=== PATIENT | male | born 1955 | race Caucasian/White ===

== ENCOUNTER 2022-04-28 07:42 | Outpatient (REF) | payer OTHER, SELFPAY ==
[2022-04-28 07:51] LABS: MANUAL DIFF FLAG NO
[2022-04-28 08:08] LABS: Basophils Absolute Auto 0.1 X10*3/uL (0.0-0.2); Basophils Percent Auto 0.5 % (0-2); Eosinophils Absolute Auto 0.3 X10*3/uL (0.0-0.4); Eosinophils Percent Auto 2.3 % (0-4); Hematocrit 43.7 % (42.0-52.0); Hemoglobin 14.4 g/dl (14.0-18.0); Imm Gran Abs Auto 0.06 X10*3/uL (0.00-0.03); Imm Gran Pct Auto 0.5 % (0.0-0.4); Lymphocytes Absolute Auto 3.4 X10*3/uL (1.2-4.9); Lymphocytes Percent Auto 30.3 % (20-40); Mean Corpuscular Hemoglobin 30.8 pg (27.0-33.0); Mean Corpuscular Volume 93.6 fL (80.0-98.0); Mean Platelet Volume 10.2 fL (9.4-12.4); Monocytes Absolute Auto 0.7 X10*3/uL (0.1-1.2); Neutrophils Absolute Auto 6.7 x10*3/uL (2.0-8.3); Neutrophils Percent Auto 60.4 % (45-73); Platelet Count 218 X10*3/uL (160-400); Red Blood Count 4.67 X10*6/uL (4.60-5.80); Red Cell Distribution Width 13.2 % (11.0-16.0); White Blood Count 11.1 X10*3/uL (4.8-10.8)
[2022-04-28 08:40] LABS: Alanine Aminotransferase 13 U/L (0-40); Albumin Level 4.5 g/dL (3.5-5.0); Alkaline Phosphatase 44 U/L (39-117); Anion Gap 11 (12-20); Aspartate Amino Transferase 16 U/L (5-37); Bilirubin Total 0.7 mg/dL (0.0-1.0); Blood Urea Nitrogen 13 mg/dL (9-16); Calcium 9.7 mg/dL (8.4-10.2); Carbon Dioxide 28 mmol/L (22-29); Chloride 109 mmol/L (96-108); Cholesterol 264 mg/dL; Estimated Glomerular Filt Rate > 60; Glucose Random 90 mg/dL (60-115); HDL Cholesterol 35 mg/dL; LDL Cholesterol Calculated 200 mg/dl; Potassium 4.7 mmol/L (3.3-5.1); Sodium 143 mmol/L (135-145); Total Protein 7.2 g/dL (6.5-8.0); Triglycerides 145 mg/dL
[2022-04-28 09:35] LABS: PSA,Total (Free>4and<10) 8.07 ng/mL (0.00-4.00); TSH reflex Free T4 0.92 uIU/mL (0.32-4.0)
[2022-05-02 12:49] LABS: Free Prostate Spec Ag 1.2 ng/mL; Percent Free Prostate Spec Ag 13 % (calc) (>25); Prostate Specific Ag Total 9.2 ng/mL (< OR = 4.0)
== END 2022-04-28 07:43 | disposition home or self-care (01) ==
LOC: HO.LAB 07:42
PROVIDERS: PCP Nurse Practitioner Family; Visit Provider Nurse Practitioner Family
DX: Z13.29 Encounter for screening for other suspected endocrine disorder (principal); Z13.1 Encounter for screening for diabetes mellitus; Z13.0 Encounter for screening for diseases of the blood and blood-forming organs and certain disorders involving the immune mechanism; Z13.220 Encounter for screening for lipoid disorders; Z12.5 Encounter for screening for malignant neoplasm of prostate
CPT/HCPCS: 36415; 80053; 80061; 84153; 84154; 84443; 85025

== ENCOUNTER 2023-01-26 12:10 | Outpatient (AMB) | payer MEDICARE, SELFPAY ==
[2023-01-26 12:12] VITALS: BP 120/90; PULSE 74; O2SAT 97; BMI 21.0
--- NOTE | 2023-01-26 12:12 | A.OFFPC_ITS ---
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 Accompanied by: Self / Same As Patient Allergies No Known Allergies [No Known Allergies*] Allergy (Verified 01/27/23 00:27) Medication List - Last Reconciled 01/27/23 by Waylon Chamberlain MD pravastatin 10 mg PO BEDTIME Tobacco use date assessed: 01/26/23 Fall risk assessment: No Falls in past year Last assessed Fall Risk: 01/26/23 Dental Screening Dental Screen Date: 01/26/23 Did you have a dental visit in the last 12 months?: Yes Did you have a dental problem in the last 6 months where you did not have access to dental care?: No Was dental information given to patient?: Patient has dentist HPI concerned about hands HPI Details Patient comes in today for evaluation of recurrent redness on both of his palms, which he states has been going on for about 3 months now Has noticed that the redness seem to occur and become more prominent when his hands get cold States that his hands do not itch or hurt but he remains concerned about why the rash/redness keeps occurring as he has reportedly read that this could indicate that he has some liver problems going on He denies any pain or swelling of his hands lately States that he feels well otherwise and has not had any problems with his current cholesterol medications Has noticed that his blood pressure also seems to be a lot better ever since he started taking Rx for his high cholesterol He denies any headaches or dizziness Denies any chest pains, no shortness of breath No nausea /vomiting, no abdominal pain No change in bowel habits noted FORMERLY [facility], [facility] Medical History (Updated 01/27/23 @ 02:06 by Waylon Chamberlain MD) Smoker Pure hypercholesterolemia Hyperlipidemia Elevated PSA, less than 10 ng/ml Elevated blood-pressure reading without diagnosis of hypertension Surgical History No pertinent past surgical history Family History Father No problems noted. Mother Bone cancer Sister No problems noted. Social History Household Members: Spouse Housing: House Alcohol intake: never Patient Tobacco Use Status: Current everyday Tobacco user Tobacco use type: Cigarette Cigarettes Per Day: 10 e-Cigarette/Vaping Use: Never Used Second Hand Smoke Exposure: No service: No Current occupational status: unemployed and retired Cognitive needs: No Hearing needs: No Vision needs: Yes Questionnaire PHQ-9 Over the last 2 weeks, how often have you been bothered by any of the following problems? 1. Little interest or pleasure in doing things: not at all 2. Feeling down, depressed, or hopeless: not at all 3. Trouble falling or staying asleep, or sleeping too much: not at all 4. Feeling tired or having little energy: not at all 5. Poor appetite or overeating: not at all 6. Feeling bad about yourself - or that you are a failure or have let yourself or your family down: not at all 7. Trouble concentrating on things, such as reading the newspaper or watching television: not at all 8. Moving or speaking so slowly that other people could have noticed. Or the opposite - being so fidgety or restless that you have been moving around a lot more than usual: not at all 9. Thoughts that you would be better off or of hurting yourself in some way: not at all Total score: 0 Depression Screening Interpretation: Negative Depression Screening Done: Yes 45689 - PHQ-9 Billing: Yes Source: Developed by Drs. Bruno Ugarte, Nicolette Pope, Pietro Hallman and colleagues, with an educational dulce from [employer]. Thrive Questionnaire Date Thrive assessed: 01/26/23 I am a: Patient What is your living situation today?: I have a steady place to live Within the past 12 months, did the food you bought not last and you didn't have the money to get more?: Never true Within the past 12 months, did you worry whether your food would run out before you got money to buy more?: Never true Do you have trouble paying for medicines?: No Do you have trouble getting transportation to medical appointments?: No Do you have trouble paying your heating and electricity bill?: No Do you have trouble taking care of your child, family member or friend?: No Do you have trouble with day-to-day activities such as bathing, preparing meals, shopping, managing finances, etc.?: No Are you currently unemployed and looking for a job?: No Are you interested in more education?: No Please select the resources that you would like help with: None Currently or been in a relationship where the following occur: no concerns reported AUDIT C Alcohol Use Questionnaire (AUDIT-C) 1. How often do you have a drink containing alcohol?: Never Total Score: 0 Score Reviewed/Action Taken: Yes LOYDA-7 AMB Questionnaire LOYDA-7 Date LOYDA - 7 assessed: 01/26/23 Feeling nervous, anxious, or on edge: 0 = Not at all Not being able to stop or control worryin = Not at all Worrying too much about different things: 0 = Not at all Trouble relaxin = Not at all Being so restless that it is hard to sit still: 0 = Not at all Becoming easily annoyed or irritable: 0 = Not at all Feeling afraid as if something awful might happen: 0 = Not at all Total LOYDA-7 score (0-4 normal; 5-9 mild; 10-14 moderate; 15-21 severe): 0 Source: Developed by Drs. Bruno Ugarte, Nicolette Pope, Pietro Hallman and colleagues, with an educational dulce from [employer]. LOYDA-7 Assessment Billing LOYDA-7 Assessment Tool: LOYDA-7 Assessment 66453 Review of Systems Const Denies fatigue, Denies fever(s) and Denies headache(s) ENT Denies dysphagia, Denies dizziness, Denies headache(s), Denies neck pain and Denies sore throat Card Denies chest pain, Denies palpitations and Denies dyspnea Resp Denies cough and Denies dyspnea GI Denies abdominal pain, Denies constipation, Denies dysphagia, Denies diarrhea, Denies nausea and Denies vomiting Denies dysuria and Denies nocturia Musc Denies neck pain Skin/Breast Reports erythema (recurrent, over both palms) Neuro Denies dizziness and Denies headache(s) Endo Denies fatigue and Denies palpitations Physical exam (Primary Care) Vital Signs: Last Vital Signs Pulse 74 01/26/23 12:12 BP 120/90 H 01/26/23 12:12 Pulse Ox 97 01/26/23 12:12 Oxygen Delivery Method Room Air 01/26/23 12:12 BMI result Body Mass Index 21.0 Tobacco/Smoking Status: Tobacco use Status Tobacco use date assessed 01/26/23 01/26/23 12:13 Patient Tobacco Use Status Current everyday Tobacco 01/26/23 12:13 Tobacco use type Cigarette 01/26/23 12:13 e-Cigarette/Vaping Use Never Used 01/26/23 12:13 PHQ-9: PHQ-9 Score PHQ-9: Total score 0 01/26/23 13:01 Depression Screening Interpretation: Negative Thrive Assessment: Date of Thrive Assessment Date Thrive assessed 01/26/23 01/26/23 12:13 Currently or been in a relationship where the following occur: no concerns reported Const General: no acute distress and alert Neck Neck: Yes no lymphadenopathy and Yes supple Resp Auscultation: clear to auscultation bilaterally, no rales and no wheezes Cardio Rate: regular rate Rhythm: regular rhythm Heart sounds: no murmurs GI Palpation (GI): Soft to palpation and nontender Auscultation: normal bowel sounds Extrem Other: (+) erythema over the palms of both hands; no tenderness noted on exam General: Yes no clubbing, cyanosis or edema Assessment and Plan Assessment & Plan (1) Palmar erythema: Code(s): L53.8 - Other specified erythematous conditions Plan: Will send patient for some labs OLGA for further evaluation (2) Pure hypercholesterolemia: Code(s): E78.00 - Pure hypercholesterolemia, unspecified Plan: Reinforced low cholesterol diet Continue Pravastatin 10 mg QD He is advised to recheck his labs and fasting lipids 1 to 2 weeks before he comes back in April 2023 for his next appointment (3) Smoker: Code(s): F17.200 - Nicotine dependence, unspecified, uncomplicated Plan: Counseled on smoking cessation Plan To return as scheduled in April 2023 for his next annual physical examination Orders: Orders C Reactive Protein 01/26/23 L53.8 - Other specified erythematous conditions Lipid Panel 04/22/23 E78.00 - Pure hypercholesterolemia, unspecified TSH reflex Free T4 04/22/23 E78.00 - Pure hypercholesterolemia, unspecified Vitamin D 25-OH Total 04/22/23 E55.9 - Vitamin D deficiency, unspecified Complete Blood Count Auto Diff 01/26/23 L53.8 - Other specified erythematous conditions Comprehensive Met. Panel 01/26/23 L53.8 - Other specified erythematous conditions Erythrocyte Sedimentation Rate 01/26/23 L53.8 - Other specified erythematous conditions Ferritin 01/26/23 L53.8 - Other specified erythematous conditions Comprehensive [place]. Panel Fast 04/22/23 E78.00 - Pure hypercholesterolemia, unspecified UA CC w/rflx Micro + Cult 04/22/23 R30.0 - Dysuria Coding Level of Care Code Est Pt Level 3 (49400) Diagnoses Palmar erythema L53.8 Pure hypercholesterolemia E78.00 Smoker F17.200 Additional Codes LOYDA-7 Assessment Billing - LOYDA-7 Assessment Tool: LOYDA-7 Assessment 38169 ([id number])
== END 2023-01-26 13:13 | disposition home or self-care (01) ==
PROVIDERS: PCP Nurse Practitioner Family; Visit Provider Internal Medicine
DX: L53.8 Other specified erythematous conditions (principal); E78.00 Pure hypercholesterolemia, unspecified; F17.210 Nicotine dependence, cigarettes, uncomplicated
CPT/HCPCS: 99213

== ENCOUNTER 2023-01-27 07:56 | Outpatient (REF) | payer MEDICARE, SELFPAY ==
[2023-01-27 08:09] LABS: MANUAL DIFF FLAG NO
[2023-01-27 08:51] LABS: Basophils Percent Auto 0.4 % (0-2); Eosinophils Absolute Auto 0.2 X10*3/uL (0.0-0.4); Hematocrit 44.4 % (42.0-52.0); Hemoglobin 14.7 g/dl (14.0-18.0); Imm Gran Abs Auto 0.04 X10*3/uL (0.00-0.03); Imm Gran Pct Auto 0.4 % (0.0-0.4); Lymphocytes Absolute Auto 2.4 X10*3/uL (1.2-4.9); Lymphocytes Percent Auto 25.4 % (20-40); Mean Corpuscular HGB Conc 33.1 g/dl (31.0-36.0); Mean Corpuscular Hemoglobin 31.1 pg (27.0-33.0); Mean Corpuscular Volume 93.9 fL (80.0-98.0); Mean Platelet Volume 10.6 fL (9.4-12.4); Monocytes Absolute Auto 0.6 X10*3/uL (0.1-1.2); Monocytes Percent Auto 6.5 % (2-11); Neutrophils Absolute Auto 6.1 x10*3/uL (2.0-8.3); Neutrophils Percent Auto 65.3 % (45-73); Platelet Count 214 X10*3/uL (160-400); Red Blood Count 4.73 X10*6/uL (4.60-5.80); Red Cell Distribution Width 13.3 % (11.0-16.0); White Blood Count 9.4 X10*3/uL (4.8-10.8)
[2023-01-27 09:19] LABS: Alanine Aminotransferase 15 U/L (0-40); Albumin Level 4.7 g/dL (3.5-5.0); Alkaline Phosphatase 51 U/L (39-117); Anion Gap 13 (12-20); Aspartate Amino Transferase 18 U/L (5-37); Bilirubin Total 0.5 mg/dL (0.0-1.0); Blood Urea Nitrogen 20 mg/dL (9-16); C Reactive Protein 0.13 mg/dL (< or = 0.50); Calcium 9.9 mg/dL (8.4-10.2); Carbon Dioxide 25 mmol/L (22-29); Chloride 106 mmol/L (96-108); Estimated Glomerular Filt Rate > 60; Glucose Random 79 mg/dL (60-115); Potassium 4.2 mmol/L (3.3-5.1); Sodium 140 mmol/L (135-145)
[2023-01-27 09:28] LABS: Ferritin 271 ng/mL (20-250)
[2023-01-27 09:30] LABS: Erythrocyte Sedimentation Rate 17 MM/HR (0-15)
== END 2023-01-27 07:57 | disposition home or self-care (01) ==
LOC: HO.LAB 07:56
PROVIDERS: PCP Internal Medicine; Visit Provider Internal Medicine
DX: L53.8 Other specified erythematous conditions (principal)
CPT/HCPCS: 36415; 80053; 82728; 85025; 85652; 86140

== ENCOUNTER 2023-07-26 10:31 | Outpatient (AMB) | payer MEDICARE, SELFPAY ==
--- NOTE | 2023-07-26 10:33 | MHC.PC.OV ---
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 Allergies No Known Allergies [No Known Allergies*] Allergy (Verified 07/26/23 11:03) Medication List - Last Reconciled 07/26/23 by Waylon Chamberlain MD melatonin 10 mg PO BEDTIME PRN multivit with tml-ON-jihhytki 400-370 mcg (One-A-Day Men's 50 Plus) 1 tab PO DAILY pravastatin 10 mg PO BEDTIME Tobacco use date assessed: 07/26/23 Fall risk assessment: No Falls in past year Last assessed Fall Risk: 07/26/23 Dental Screening Dental Screen Date: 07/26/23 Did you have a dental visit in the last 12 months?: No Did you have a dental problem in the last 6 months where you did not have access to dental care?: No HPI annual exam HPI Details Patient comes in today for his annual physical examination States that he feels okay He denies any headaches or dizziness Denies any chest pains, no SOB No nausea/vomiting, no abdominal pain No change in bowel habits noted He denies any acute urinary symptoms He continues to notice recurrent redness on both of his palms, which seem to become more prominent when his hands get cold States that his hands do not itch or hurt and he denies any pain or swelling of his hands and fingers He has never had a colonoscopy done before and continues to decline referral to get one done He previously agreed to doing Cologuard testing but did not go through with this as he reportedly lost his insurance back then and is not interested in doing it at this time He has not follow up labs done recently [facility] Medical History (Updated 07/26/23 @ 11:22 by Waylon Chamberlain MD) Smoker Pure hypercholesterolemia Elevated PSA, less than 10 ng/ml Elevated blood-pressure reading without diagnosis of hypertension Surgical History No pertinent past surgical history Family History Father No problems noted. Mother Bone cancer Sister No problems noted. Social History Household Members: Spouse Housing: House Alcohol intake: never Patient Tobacco Use Status: Current everyday Tobacco user Tobacco use type: Cigarette Cigarettes Per Day: 10 e-Cigarette/Vaping Use: Never Used Second Hand Smoke Exposure: No service: No Current occupational status: unemployed and retired Cognitive needs: No Hearing needs: No Vision needs: Yes Questionnaire PHQ-9 Over the last 2 weeks, how often have you been bothered by any of the following problems? 1. Little interest or pleasure in doing things: not at all 2. Feeling down, depressed, or hopeless: not at all 3. Trouble falling or staying asleep, or sleeping too much: not at all 4. Feeling tired or having little energy: not at all 5. Poor appetite or overeating: not at all 6. Feeling bad about yourself - or that you are a failure or have let yourself or your family down: not at all 7. Trouble concentrating on things, such as reading the newspaper or watching television: not at all 8. Moving or speaking so slowly that other people could have noticed. Or the opposite - being so fidgety or restless that you have been moving around a lot more than usual: not at all 9. Thoughts that you would be better off or of hurting yourself in some way: not at all Total score: 0 Depression Screening Interpretation: Negative Depression Screening Done: Yes 03288 - PHQ-9 Billing: Yes Source: Developed by Drs. Bruno Ugarte, Nicolette Pope, Pietro Hallman and colleagues, with an educational dulce from [employer]. Thrive Questionnaire Date Thrive assessed: 07/26/23 I am a: Patient What is your living situation today?: I have a steady place to live Within the past 12 months, did the food you bought not last and you didn't have the money to get more?: Never true Within the past 12 months, did you worry whether your food would run out before you got money to buy more?: Never true Do you have trouble paying for medicines?: No Do you have trouble getting transportation to medical appointments?: No Do you have trouble paying your heating and electricity bill?: No Do you have trouble taking care of your child, family member or friend?: No Do you have trouble with day-to-day activities such as bathing, preparing meals, shopping, managing finances, etc.?: No Are you currently unemployed and looking for a job?: No Are you interested in more education?: No Please select the resources that you would like help with: None Currently or been in a relationship where the following occur: no concerns reported THRIVE Score: 0 AUDIT C Alcohol Use Questionnaire (AUDIT-C) 1. How often do you have a drink containing alcohol?: Never 3. How often do you have six or more drinks on one occasion?: Never Total Score: 0 Score Reviewed/Action Taken: Yes LOYDA-7 AMB Questionnaire LOYDA-7 Date LOYDA - 7 assessed: 07/26/23 Feeling nervous, anxious, or on edge: 0 = Not at all Not being able to stop or control worryin = Not at all Worrying too much about different things: 0 = Not at all Trouble relaxin = Not at all Being so restless that it is hard to sit still: 0 = Not at all Becoming easily annoyed or irritable: 0 = Not at all Feeling afraid as if something awful might happen: 0 = Not at all Total LOYDA-7 score (0-4 normal; 5-9 mild; 10-14 moderate; 15-21 severe): 0 Source: Developed by Drs. Bruno Ugarte, Nicolette Pope, Pietro Hallman and colleagues, with an educational dulce from [employer]. LOYDA-7 Assessment Billing LOYDA-7 Assessment Tool: LOYDA-7 Assessment 15720 Review of Systems Const Denies chills, Denies fatigue, Denies fever(s), Denies headache(s), Denies malaise and Denies weakness Eyes Denies blurry vision, Denies change in vision, Denies irritation and Denies itchy eyes ENT Denies dysphagia, Denies dizziness, Denies otalgia, Denies headache(s), Denies nasal congestion, Denies neck pain, Denies odynophagia and Denies sore throat Card Denies chest pain, Denies rapid heart rate, Denies irregular heart rhythm, Denies palpitations and Denies dyspnea Resp Denies chest congestion, Denies cough, Denies dyspnea and Denies wheezing GI Denies abdominal pain, Denies bloating, Denies constipation, Denies dysphagia, Denies heartburn, Denies diarrhea, Denies nausea, Denies odynophagia and Denies vomiting Denies hematuria, Denies difficulty urinating, Denies dysuria, Denies urinary frequency and Denies urinary urgency Musc Denies back pain, Denies arthralgias, Denies joint swelling, Denies muscle weakness and Denies neck pain Skin/Breast Details: (+) erythema of both palms, primarily over the thenar and hypothenar eminence Denies change in pigmentation, Denies lesions, Denies rash and Denies unusual bruising Neuro Denies dizziness, Denies headache(s), Denies paresthesias and Denies weakness Endo Denies fatigue and Denies palpitations Aller/Immun Denies itchy eyes and Denies wheezing Physical exam (Primary Care) Vital Signs: Last Vital Signs Pulse 77 07/26/23 10:34 BP 138/64 07/26/23 10:34 Pulse Ox 97 07/26/23 10:34 Oxygen Delivery Method Room Air 07/26/23 10:34 BMI result Body Mass Index 20.8 Tobacco/Smoking Status: Tobacco use Status Tobacco use date assessed 07/26/23 07/26/23 10:35 Patient Tobacco Use Status Current everyday Tobacco 07/26/23 10:35 Tobacco use type Cigarette 07/26/23 10:35 e-Cigarette/Vaping Use Never Used 07/26/23 10:35 PHQ-9: PHQ-9 Score PHQ-9: Total score 0 07/26/23 10:35 Depression Screening Interpretation: Negative Thrive Assessment: Date of Thrive Assessment Date Thrive assessed 07/26/23 07/26/23 10:42 Currently or been in a relationship where the following occur: no concerns reported Const General: no acute distress, alert and awake Orientation/consciousness: patient oriented x3 HENMT Head: Yes normocephalic and Yes atraumatic Ears: external ears normal, TM's normal bilaterally and EAC's normal General nose exam: No nasal discharge present Face and sinus: Yes normal facial exam and Yes sinuses nontender Teeth and gingiva: dentition normal Throat: Yes posterior oropharynx normal and Yes tonsils normal (no TP congestion) Eyes Eyelids: Yes eyelids normal Conjunctivae: conjunctivae normal Pupils: Equal, round and reactive pupils present EOM: EOMs intact bilaterally Neck Neck: Yes no lymphadenopathy and Yes supple Thyroid: Thyroid normal Resp Auscultation: clear to auscultation bilaterally, no rales and no wheezes Cardio Rate: regular rate Rhythm: regular rhythm Heart sounds: no murmurs GI Palpation (GI): Soft to palpation, nontender and No hepatosplenomegaly present Auscultation: normal bowel sounds General: Yes no CVA tenderness Back/Spine/Pelvis Back: no CVA tenderness Thoracic/Lumbar Spine: thoracic and lumbar spine normal to inspection Skin General skin exam: erythema (of both palms, primarily over the thenar and hypothenar eminence) Lesions: no lesions Rashes: no rashes Neuro General: patient oriented x3, moves all extremities, no focal motor deficits and CN's II-XI intact bilaterally Cranial nerves: Yes Equal, round and reactive pupils present Cognition (Neuro): normal cognition Gait exam (Neuro): Normal gait present Extrem General: Yes no clubbing, cyanosis or edema Assessment and Plan Assessment & Plan (1) Annual physical exam: Code(s): Z00.00 - Encounter for general adult medical examination without abnormal findings Plan: Check labs Patient has never had a screening colonoscopy done in the past and continues to decline going for one at this time (2) Pure hypercholesterolemia: Code(s): E78.00 - Pure hypercholesterolemia, unspecified Plan: Reinforced low cholesterol diet Continue Pravastatin 10 mg QD Will have him recheck his fasting lipids OLGA for follow up - is advised again that his cholesterol numbers were very high (LDL at 200 mg/dl) when they were last checked over a year ago in April 2022 (3) Palmar erythema: Code(s): L53.8 - Other specified erythematous conditions Plan: Previous basic work ups done were all unremarkable Will send him for some additional labs for further evaluation of his recurrent palmar erythema - discussed that vasculitis and other possibilities should be considered at this time although other than his erythema, patient is mostly asymptomatic (4) Elevated PSA, less than 10 ng/ml: Code(s): R97.20 - Elevated prostate specific antigen [PSA] Plan: Will recheck his PSA for follow up Is advised that if his PSA level remains elevated, he should consider a referral to urology for further evaluation and management (5) Smoker: Code(s): F17.200 - Nicotine dependence, unspecified, uncomplicated Plan: Counseled again on smoking cessation Plan Follow up in 6 months Orders: Orders Complete Blood Count Auto Diff Today D64.9 - Anemia, unspecified, L53.8 - Other specified erythematous conditions Comprehensive [place]. Panel Fast Today E78.00 - Pure hypercholesterolemia, unspecified, L53.8 - Other specified erythematous conditions UA CC w/rflx Micro + Cult Today L53.8 - Other specified erythematous conditions, R30.0 - Dysuria Vitamin B12 and Folate Today E53.8 - Deficiency of other specified B group vitamins, L53.8 - Other specified erythematous conditions Vitamin D 25-OH Total Today E55.9 - Vitamin D deficiency, unspecified, L53.8 - Other specified erythematous conditions PSA,Total (Free>4and<10) Today N40.0 - Benign prostatic hyperplasia without lower urinary tract symptoms, R97.20 - Elevated prostate specific antigen [PSA] Rheumatoid Factor Today L53.8 - Other specified erythematous conditions Lyme IgG/IgM w/reflex to WB Today L53.8 - Other specified erythematous conditions Lipid Panel Today E78.00 - Pure hypercholesterolemia, unspecified, L53.8 - Other specified erythematous conditions TSH reflex Free T4 Today E78.00 - Pure hypercholesterolemia, unspecified, L53.8 - Other specified erythematous conditions Erythrocyte Sedimentation Rate Today L53.8 - Other specified erythematous conditions, M79.7 - Fibromyalgia C Reactive Protein Today L53.8 - Other specified erythematous conditions Magnesium Today E83.42 - Hypomagnesemia, L53.8 - Other specified erythematous conditions MILEY Reflex Titer and Pattern Today L53.8 - Other specified erythematous conditions Review Patient declined Colonoscopy: 07/26/23 Patient declined Colon Cancer Screen Lab: 07/26/23 Coding Level of Care Code Est Pt Prev Care >65y(12649) Diagnoses Annual physical exam Z00.00 Pure hypercholesterolemia E78.00 Palmar erythema L53.8 Elevated PSA, less than 10 ng/ml R97.20 Smoker F17.200 Additional Codes LOYDA-7 Assessment Billing - LOYDA-7 Assessment Tool: LOYDA-7 Assessment 26464 ([id number])
[2023-07-26 10:34] VITALS: BP 138/64; PULSE 77; O2SAT 97; BMI 20.8
== END 2023-07-26 12:18 | disposition home or self-care (01) ==
PROVIDERS: PCP Internal Medicine; Visit Provider Internal Medicine
DX: Z00.00 Encounter for general adult medical examination without abnormal findings (principal); E78.00 Pure hypercholesterolemia, unspecified; L53.8 Other specified erythematous conditions; R97.20 Elevated prostate specific antigen [PSA]; F17.200 Nicotine dependence, unspecified, uncomplicated
CPT/HCPCS: 99397

== ENCOUNTER 2023-07-27 06:47 | Outpatient (REF) | payer MEDICARE, SELFPAY ==
[2023-07-27 07:01] LABS: MANUAL DIFF FLAG NO
[2023-07-27 07:47] LABS: Basophils Absolute Auto 0.1 X10*3/uL (0.0-0.2); Basophils Percent Auto 0.6 % (0-2); Eosinophils Absolute Auto 0.3 X10*3/uL (0.0-0.4); Eosinophils Percent Auto 2.1 % (0-4); Hematocrit 42.6 % (42.0-52.0); Hemoglobin 14.3 g/dl (14.0-18.0); Imm Gran Abs Auto 0.05 X10*3/uL (0.00-0.03); Imm Gran Pct Auto 0.4 % (0.0-0.4); Lymphocytes Absolute Auto 3.1 X10*3/uL (1.2-4.9); Lymphocytes Percent Auto 25.5 % (20-40); Mean Corpuscular HGB Conc 33.6 g/dl (31.0-36.0); Mean Corpuscular Hemoglobin 31.8 pg (27.0-33.0); Mean Corpuscular Volume 94.9 fL (80.0-98.0); Mean Platelet Volume 10.9 fL (9.4-12.4); Monocytes Absolute Auto 0.8 X10*3/uL (0.1-1.2); Monocytes Percent Auto 6.5 % (2-11); Neutrophils Absolute Auto 7.8 x10*3/uL (2.0-8.3); Neutrophils Percent Auto 64.9 % (45-73); Platelet Count 207 X10*3/uL (160-400); Red Blood Count 4.49 X10*6/uL (4.60-5.80); Red Cell Distribution Width 13.6 % (11.0-16.0); White Blood Count 12.1 X10*3/uL (4.8-10.8)
[2023-07-27 08:05] LABS: Rheumatoid Factor < 13.0 IU/mL (<15.0)
[2023-07-27 08:12] LABS: Alanine Aminotransferase 18 U/L (0-40); Albumin Level 4.4 g/dL (3.5-5.0); Alkaline Phosphatase 47 U/L (39-117); Anion Gap 14 (12-20); Aspartate Amino Transferase 18 U/L (5-37); Bilirubin Total 0.5 mg/dL (0.0-1.0); Blood Urea Nitrogen 19 mg/dL (9-16); Calcium 9.4 mg/dL (8.4-10.2); Carbon Dioxide 25 mmol/L (22-29); Chloride 108 mmol/L (96-108); Cholesterol 171 mg/dL (<200); Estimated Glomerular Filt Rate > 60; Glucose Fasting 90 mg/dL (60-99); HDL Cholesterol 38 mg/dL (>40); LDL Cholesterol Calculated 113 mg/dL (<100); Potassium 4.5 mmol/L (3.3-5.1); Sodium 142 mmol/L (135-145); Total Protein 7.4 g/dL (6.5-8.0); Triglycerides 104 mg/dL (<150)
[2023-07-27 08:23] LABS: PSA,Total (Free>4and<10) 11.39 ng/mL (0.00-4.00)
[2023-07-27 08:26] LABS: TSH reflex Free T4 0.72 uIU/mL (0.32-4.0); Vitamin D 25-OH Total 33.3 ng/mL (>30)
[2023-07-27 08:28] LABS: Appearance Urine Clear; Color Urine Yellow; Glucose Urine UA Negative (Negative); Leukocyte Esterase Urine Negative (Negative); Nitrite Urine Negative (Negative); PH 6.5 (5.0-9.0); Specific Gravity - Urine 1.025 (1.005-1.025); Urine Blood Negative (Negative); Urine Ketones Negative (Negative); Urine Protein Negative (Neg-Trace)
[2023-07-27 08:35] LABS: Folate 10.8 ng/mL (> or = 4.0); Vitamin B12 313 pg/mL (200-900)
[2023-07-27 08:56] LABS: Erythrocyte Sedimentation Rate 20 MM/HR (0-15)
[2023-07-28 09:08] LABS: Lyme Abs Screen <0.90 index
[2023-07-31 14:44] LABS: Anti Nuclear Antibody Screen NEGATIVE (NEGATIVE)
== END 2023-07-27 06:48 | disposition home or self-care (01) ==
LOC: HO.LAB 06:47
PROVIDERS: PCP Internal Medicine; Visit Provider Internal Medicine
DX: E53.8 Deficiency of other specified B group vitamins (principal); M79.7 Fibromyalgia; E78.00 Pure hypercholesterolemia, unspecified; L53.8 Other specified erythematous conditions; R30.0 Dysuria; E55.9 Vitamin D deficiency, unspecified; N40.0 Benign prostatic hyperplasia without lower urinary tract symptoms; R97.20 Elevated prostate specific antigen [PSA]; E83.42 Hypomagnesemia; D64.9 Anemia, unspecified; Z12.5 Encounter for screening for malignant neoplasm of prostate
CPT/HCPCS: 36415; 80053; 80061; 81003; 82306; 82607; 82746; 83735; 84153; 84443; 85025; 85652; 86038; 86140; 86431; 86617; 86618

== ENCOUNTER 2024-01-25 10:38 | Outpatient (REF) | payer MEDICARE, SELFPAY ==
--- NOTE | 2024-01-25 12:46 | ECG_ITS ---
Test Reason : r09.89 Blood Pressure : / mmHG Vent. Rate : 069 BPM Atrial Rate : 069 BPM P-R Int : 124 ms QRS Dur : 076 ms QT Int : 370 ms P-R-T Axes : 053 -42 062 degrees QTc Int : 396 ms Normal sinus rhythm Left axis deviation Abnormal ECG No previous ECGs available Referred By: Byron Malone Electronically Signed By:SÁNCHEZ ALEJO MD
[2024-01-25 12:53] LABS: MANUAL DIFF FLAG NO
[2024-01-25 13:04] LABS: Basophils Absolute Auto 0.1 X10*3/uL (0.0-0.2); Basophils Percent Auto 0.5 % (0-2); Eosinophils Absolute Auto 0.2 X10*3/uL (0.0-0.4); Eosinophils Percent Auto 1.4 % (0-4); Hematocrit 41.1 % (42.0-52.0); Hemoglobin 13.9 g/dl (14.0-18.0); Imm Gran Abs Auto 0.04 X10*3/uL (0.00-0.03); Imm Gran Pct Auto 0.4 % (0.0-0.4); Lymphocytes Absolute Auto 2.5 X10*3/uL (1.2-4.9); Lymphocytes Percent Auto 22.6 % (20-40); Mean Corpuscular HGB Conc 33.8 g/dl (31.0-36.0); Mean Corpuscular Volume 94.7 fL (80.0-98.0); Mean Platelet Volume 10.6 fL (9.4-12.4); Monocytes Absolute Auto 0.6 X10*3/uL (0.1-1.2); Monocytes Percent Auto 5.3 % (2-11); Neutrophils Absolute Auto 7.8 x10*3/uL (2.0-8.3); Neutrophils Percent Auto 69.8 % (45-73); Platelet Count 194 X10*3/uL (160-400); Red Blood Count 4.34 X10*6/uL (4.60-5.80); Red Cell Distribution Width 13.3 % (11.0-16.0); White Blood Count 11.2 X10*3/uL (4.8-10.8)
[2024-01-25 13:46] LABS: Alanine Aminotransferase 29 U/L (0-40); Albumin Level 4.6 g/dL (3.5-5.0); Alkaline Phosphatase 49 U/L (39-117); Anion Gap 12 (12-20); Aspartate Amino Transferase 25 U/L (5-37); Bilirubin Total 0.3 mg/dL (0.0-1.0); Blood Urea Nitrogen 14 mg/dL (9-16); Calcium 10.2 mg/dL (8.4-10.2); Carbon Dioxide 25 mmol/L (22-29); Chloride 109 mmol/L (96-108); Estimated Glomerular Filt Rate > 60; Glucose Random 102 mg/dL (60-115); Magnesium 2.2 mg/dL (1.6-2.6); Potassium 4.4 mmol/L (3.3-5.1); Sodium 142 mmol/L (135-145); Total Protein 7.8 g/dL (6.5-8.0)
[2024-01-25 13:47] LABS: Erythrocyte Sedimentation Rate 23 MM/HR (0-15)
[2024-01-25 13:55] LABS: TSH reflex Free T4 0.74 uIU/mL (0.32-4.0)
== END 2024-01-25 10:39 | disposition home or self-care (01) ==
LOC: HO.LAB 10:38
PROVIDERS: PCP Internal Medicine; Visit Provider Internal Medicine
DX: R97.20 Elevated prostate specific antigen [PSA] (principal); R09.89 Other specified symptoms and signs involving the circulatory and respiratory systems; H93.8X2 Other specified disorders of left ear; E78.00 Pure hypercholesterolemia, unspecified; R03.0 Elevated blood-pressure reading, without diagnosis of hypertension; D64.9 Anemia, unspecified; F17.200 Nicotine dependence, unspecified, uncomplicated; Z79.899 Other long term (current) drug therapy
CPT/HCPCS: 36415; 80053; 83735; 84443; 85025; 85652; 93005; 96127; 99212

== ENCOUNTER 2024-01-25 10:38 | Outpatient (AMB) | payer MEDICARE, SELFPAY ==
[2024-01-25 10:59] VITALS: BP 140/82; PULSE 78; O2SAT 97; BMI 21.8
--- NOTE | 2024-01-25 10:59 | A.OFFPC_ITS ---
Vital Signs 01/25/24 10:59 01/25/24 12:14 Height 5 ft 5 in Weight 131 lb BMI 21.8 BP 140/82 H 142/80 H Blood Pressure Location Lt brachial Lt brachial Position Sitting Sitting Pulse 78 Pulse Source Pulse Oximeter Pulse Oximetry (%) 97 Oxygen Delivery Method Room Air Intake Visit Reasons: HLD Radiological Equipment Specialist Required: No Accompanied by: Self / Same As Patient Allergies No Known Allergies [No Known Allergies*] Allergy (Verified 01/25/24 11:10) Medication List - Last Reconciled 01/25/24 by CARIN Jasso melatonin 10 mg PO BEDTIME PRN multivit with [id number] 400-370 mcg (One-A-Day Men's 50 Plus) 1 tab PO D AILY pravastatin 10 mg PO BEDTIME Tobacco use date assessed: 01/25/24 Fall risk assessment: No Falls in past year Last assessed Fall Risk: 01/25/24 Dental Screening Dental Screen Date: 01/25/24 Did you have a dental visit in the last 12 months?: Yes Did you have a dental problem in the last 6 months where you did not have access to dental care?: No Was dental information given to patient?: Patient has dentist HPI HLD HPI Details The patient is here for follow up visit He reports that he does not have any urinary symptoms reports that he does not want to see a urologist at this time reports that if his psa levels still increasing on his next physical He will think about seeing an urologist then reports that he never had his heart checked before reports that some not some times he feel like a shortwave, real quick, but does last long He denies chest pain, denies sob, denies palpitation, and dizziness He also denies any changes in the his vision reports that his left ear has been bothering him for couple weeks reports that he is hearing his heartbeat intermittently in his ear reports that the sounds are worse at night when it comes on reports that he was hearing the sounds in the office lobby reports that the sounds are completely gone now he denies pain in both ears denies any ringing in the ears denies any drainage reports trying otc ear drops, but he is not sure which one however, the patient reports that it did not work [facility] Medical History (Updated 01/25/24 @ 13:16 by CARIN Jasso) Smoker Pure hypercholesterolemia Elevated PSA, less than 10 ng/ml Elevated blood-pressure reading without diagnosis of hypertension Surgical History No pertinent past surgical history Family History Father No problems noted. Mother Bone cancer Sister No problems noted. Social History Household Members: Spouse Housing: House Alcohol intake: never Patient Tobacco Use Status: Current everyday Tobacco user Tobacco use type: Cigarette Cigarettes Per Day: 10 e-Cigarette/Vaping Use: Never Used Second Hand Smoke Exposure: No service: No Current occupational status: unemployed and retired Cognitive needs: No Hearing needs: No Vision needs: Yes Questionnaire PHQ-9 Over the last 2 weeks, how often have you been bothered by any of the following problems? 1. Little interest or pleasure in doing things: not at all 2. Feeling down, depressed, or hopeless: not at all 3. Trouble falling or staying asleep, or sleeping too much: not at all 4. Feeling tired or having little energy: not at all 5. Poor appetite or overeating: not at all 6. Feeling bad about yourself - or that you are a failure or have let yourself or your family down: not at all 7. Trouble concentrating on things, such as reading the newspaper or watching television: not at all 8. Moving or speaking so slowly that other people could have noticed. Or the opposite - being so fidgety or restless that you have been moving around a lot more than usual: not at all 9. Thoughts that you would be better off or of hurting yourself in some wa y: not at all Total score: 0 Depression Screening Interpretation: Negative Depression Screening Done: Yes 95819 - PHQ-9 Billing: Yes Source: Developed by Drs. Bruno Ugarte, Nicolette Pope, Pietro Hallman and colleagues, with an educational dulce from [employer]. Thrive Questionnaire Date Thrive assessed: 01/25/24 I am a: Patient What is your living situation today?: I have a steady place to live Within the past 12 months, did the food you bought not last and you didn't have the money to get more?: Never true Within the past 12 months, did you worry whether your food would run out before you got money to buy more?: Never true Do you have trouble paying for medicines?: No Do you have trouble getting transportation to medical appointments?: No Do you have trouble paying your heating and electricity bill?: No Do you have trouble taking care of your child, family member or friend?: No Do you have trouble with day-to-day activities such as bathing, preparing meals, shopping, managing finances, etc.?: No Are you currently unemployed and looking for a job?: No Are you interested in more education?: No Please select the resources that you would like help with: None Currently or been in a relationship where the following occur: No concerns reported THRIVE Score: 0 AUDIT C Alcohol Use Questionnaire (AUDIT-C) 1. How often do you have a drink containing alcohol?: Never 3. How often do you have six or more drinks on one occasion?: Never Total Score: 0 Score Reviewed/Action Taken: Yes LOYDA-7 AMB Questionnaire LOYDA-7 Date LOYDA - 7 assessed: 01/25/24 Feeling nervous, anxious, or on edge: 0 = Not at all Not being able to stop or control worryin = Not at all Worrying too much about different things: 0 = Not at all Trouble relaxin = Not at all Being so restless that it is hard to sit still: 0 = Not at all Becoming easily annoyed or irritable: 0 = Not at all Feeling afraid as if something awful might happen: 0 = Not at all Total LOYDA-7 score (0-4 normal; 5-9 mild; 10-14 moderate; 15-21 severe): 0 Source: Developed by Drs. Bruno Ugarte, Nicolette Pope, Pietro Hallman and colleagues, with an educational dulce from [employer]. LOYDA-7 Assessment Billing LOYDA-7 Assessment Tool: LOYDA-7 Assessment 35421 Review of Systems Const Denies difficulty sleeping, Denies fatigue, Denies fever(s), Reports headache(s) (once in awhile, goes away with otc) and Denies weakness ENT Denies dysphagia, Denies dizziness, Denies otalgia, Reports headache(s) (once in awhile, goes away with otc), Denies hearing loss, Denies neck pain, Denies sore throat and Reports other (reports hearing his heart beat in his left ear intermittently) Card Reports chest pain (reports a shock like wave infrequently in his left chest), Denies chest pain with activity, Denies diaphoresis, Denies rapid heart rate, Denies irregular heart rhythm, Denies lightheadedness, Denies radiating jaw, neck or arm pain, Denies palpitations and Denies dyspnea Resp Denies chest congestion, Denies cough, Denies pain on inspiration, Denies dyspnea and Denies wheezing GI Denies abdominal pain, Denies change in stool character, Denies constipation, Denies dysphagia, Denies excessive flatus, Denies heartburn, Denies diarrhea, Denies nausea and Denies vomiting Denies hematuria, Denies difficulty urinating, Denies nocturia, Denies urinary frequency, Denies urinary incontinence and Denies urinary urgency Musc Denies neck pain Skin/Breast Denies rash Neuro Denies dizziness, Reports headache(s) (once in awhile, goes away with otc) and Denies weakness Psych Denies no additional complaints Endo Denies change in body appearance, Denies cold intolerance, Denies deepening of the voice, Denies fatigue, Denies heat intolerance, Denies polyphagia, Denies polydipsia, Denies polyuria and Denies palpitations Dominic/Lymph Denies easy bleeding, Denies easy bruising and Denies lymphadenopathy Aller/Immun Denies GI upset with certain foods, Denies urticaria, Denies seasonal rhinorrhea and Denies wheezing Physical exam (Primary Care) Vital Signs: Last Vital Signs Pulse 78 01/25/24 10:59 BP 142/80 H 01/25/24 12:14 Pulse Ox 97 01/25/24 10:59 Oxygen Delivery Method Room Air 01/25/24 10:59 BMI result Body Mass Index 21.8 Tobacco/Smoking Status: Tobacco use Status Tobacco use date assessed 01/25/24 01/25/24 11:01 Patient Tobacco Use Status Current everyday Tobacco 01/25/24 11:01 Tobacco use type Cigarette 01/25/24 11:01 e-Cigarette/Vaping Use Never Used 01/25/24 11:01 Are you ready to quit: No Tobacco cessation counseling provided: Yes CPT code: Less than 3 minutes PHQ-9: PHQ-9 Score PHQ-9: Total score 0 01/25/24 12:35 Depression Screening Interpretation: Negative Thrive Assessment: Date of Thrive Assessment Date Thrive assessed 01/25/24 01/25/24 11:01 Currently or been in a relationship where the following occur: No concerns reported Const General: cooperative, comfortable and no acute distress Orientation/consciousness: patient oriented x3 Limitations: no limitations [facility] Head: Yes normal to inspection, Yes normocephalic and Yes atraumatic Ears: hearing grossly normal bilaterally, external ears normal, TM's normal bilaterally, EAC's normal, mastoids normal and no periauricular adenopathy General nose exam: Normal external nose present, Normal nares present and No nasal polyps present Face and sinus: Yes normal facial exam, Yes sinuses nontender and Yes face symmetric Mouth: Normal oral and palatal mucosa present, lip normal, tongue normal, oropharynx normal and moist mucous membranes Teeth and gingiva: dentition normal Throat: Yes posterior oropharynx normal, Yes tonsils normal and Yes uvula midline Eyes General: appearance normal, both eyes and all related structures EOM: EOMs intact bilaterally Neck Neck: Yes normal visual inspection, Yes full ROM, Yes no lymphadenopathy, Yes no meningeal signs, Yes trachea midline and Yes supple Thyroid: Thyroid normal Carotids: bruit (left carotid bruit) Chest Chest palpation & inspection: normal inspection of the chest and normal palpatio n of entire chest wall Resp Effort & Inspection: normal respiratory effort and able to speak in complete sentences Auscultation: clear to auscultation bilaterally Cardio Palpation: normal PMI Rate: regular rate Rhythm: regular rhythm Heart sounds: S1 normal heart sound present and S2 normal heart sound present Bruits: no abdominal aortic bruits and carotid bruit (left side) Peripheral pulses: Peripheral pulses 2+ throughout and radial pulses present GI Inspection: Yes normal to inspection, No abdominal wall ecchymosis, No Abdominal wall edema and No distended Palpation (GI): No Abdominal aortic bruit present, Soft to palpation and nontender Percussion: Yes normal to percussion Auscultation: normal bowel sounds General: Yes no CVA tenderness Back/Spine/Pelvis Back: no CVA tenderness Skin Lesions: no lesions Rashes: no rashes Trauma: no lacerations or abrasions Nails: normal Neuro General: patient oriented x3 and no meningeal signs Cognition (Neuro): normal cognition Motor exam (neuro): 5/5 motor strength present throughout Pupils: Normal pupillary reactivity/response: right and left Extrem General: Yes normal to inspection and Yes full ROM Right upper extremity: normal to inspection and full ROM Left upper extremity: normal to inspection and full ROM Psych Appearance: grossly normal and well kempt Mental Status: mental status grossly normal Speech and movement: Normal speech and movement present Affect: normal affect Attitude: cooperative Thought process: Normal thought process present Thought content: Normal thought content present Insight: Good insight present (Psych) Judgement: Good judgement present (Psych) Results Reviewed Results Reviewed: Laboratory Tests 07/27/23 06:57 WBC 12.1 H RBC 4.49 L Hgb 14.3 Hct 42.6 Plt Count 207 ESR 20 H Sodium 142 Potassium 4.5 Chloride 108 BUN 19 H Creatinine 0.87 Estimated GFR > 60 Fasting Glucose 90 Calcium 9.4 AST 18 ALT 18 Alkaline Phosphatase 47 Cholesterol 171 LDL Cholesterol, Calc 113 H HDL Cholesterol 38 L Total PSA 11.39 H Vitamin B12 313 25-OH Vitamin D Total 33.3 TSH 0.72 Coding Level of Care Code Est Pt Level 4 (10702) Diagnoses Elevated PSA, between 10 and less than 20 ng/ml R97.20 Abnormal sensation of thorax R09.89 Audible heartbeat in left ear H93.8X2 Bruit of left carotid artery R09.89 Laterality: left Pure hypercholesterolemia E78.00 Elevated blood-pressure reading without diagnosis of hypertension R03.0 Smoker F17.200 Additional Codes LOYDA-7 Assessment Billing - LOYDA-7 Assessment Tool: LOYDA-7 Assessment 98581 ([id number]) PHQ-9 - 23652 - PHQ-9 Billing: Yes ([id number]) Assessment & Plan Assessment & Plan (1) Elevated PSA, between 10 and less than 20 ng/ml: Code(s): R97.20 - Elevated prostate specific antigen [PSA] Category: Medical Plan: The patient psa elevated 11.39 07/27/23. The refusing to have it rechecked until his next PE The patient was offered an referral to urology but he declined Stating that he is not having any symptoms, but if it continues to increased he will Will order PSA for the patient next PE (2) Abnormal sensation of thorax: Code(s): R09.89 - Other specified symptoms and signs involving the circulatory and respiratory systems Category: Medical Plan: The reports intermittent shock wave like sensation over his left chest EKG ordered for further evaluation (3) Audible heartbeat in left ear: Code(s): H93.8X2 - Other specified disorders of left ear Category: Medical Plan: The patient reported hearing his heart beat in his left eye intermittently Physical exam was normal labs ordered BP slightly elevated in office. The patient reported that it has been normal at home. The patient was encouraged to continue checking bp at home and if it continues to be elevated he should call the office (4) Carotid bruit: Code(s): R09.89 - Other specified symptoms and signs involving the circulatory and respiratory systems Category: Medical Qualifiers: Laterality: left Qualified Code(s): R09.89 - Other specified symptoms and signs involving the circulatory and respiratory systems Plan: Carotid bruit heard on the left side, bilateral carotid ultrasound ordered (5) Pure hypercholesterolemia: Code(s): E78.00 - Pure hypercholesterolemia, unspecified Category: Medical Plan: Results of his labs done back in July 2023 reviewed and discussed with patient - he is advised that his cholesterol levels back then have improved significantly from a year ago Reinforced low cholesterol diet Continue Pravastatin 10 mg QD Will have him recheck his labs and fasting lipids OLGA for follow up (6) Elevated blood-pressure reading without diagnosis of hypertension: Code(s): R03.0 - Elevated blood-pressure reading, without diagnosis of hypertension Category: Medical Plan: His blood pressure appears slightly elevated in the office today Patient states that it was normal when he checked it at home this morning Reinforced low sodium diet He is reminded to continue monitoring his blood pressure at home regularly (7) Smoker: Code(s): F17.200 - Nicotine dependence, unspecified, uncomplicated Category: Social Hx Plan: Patient is again counseled on smoking cessation Plan To return as scheduled in July 2024 for his next annual physical examination Orders: Orders Complete Blood Count Auto Diff 01/25/24 CARIN Jasso H93.8X2 - Other specified disorders of left ear Magnesium 01/25/24 CARIN Jasso H93.8X2 - Other specified disorders of left ear Erythrocyte Sedimentation Rate 01/25/24 CARIN Jasso H93.8X2 - Other specified disorders of left ear Complete Blood Count Auto Diff 07/27/24 Waylon Chamberlain MD D64.9 - Anemia, unspecified, Z00.00 - Encounter for general adult medical examination without abnormal findings Comprehensive [place]. Panel Fast 07/27/24 Waylon Chamberlain MD E78.00 - Pure hypercholesterolemia, unspecified, Z00.00 - Encounter for general adult medical examination without abnormal findings Lipid Panel 07/27/24 Waylon Chamberlain MD E78.00 - Pure hypercholesterolemia, unspecified, Z00.00 - Encounter for general adult medical examination without abnormal findings UA CC w/rflx Micro + Cult 07/27/24 Waylon Chamberlain MD R30.0 - Dysuria, Z00.00 - Encounter for general adult medical examination without abnormal findings Prostate Specific Antigen 07/27/24 Waylon Chamberlain MD N40.0 - Benign prostatic hyperplasia without lower urinary tract symptoms, R97.20 - Elevated prostate specific antigen [PSA], Z00.00 - Encounter for general adult medical examination without abnormal findings ECG 12 lead EKG 01/25/24 CARIN Jasso R09.89 - Other specified symptoms and signs involving the circulatory and respiratory systems US carotid duplex BI 01/25/24 CARIN Jasso R09.89 - Other specified symptoms and signs involving the circulatory and respiratory systems Comprehensive Met. Panel 01/25/24 CARIN Jasso H93.8X2 - Other specifi ed disorders of left ear TSH reflex Free T4 01/25/24 CARIN Jasso H93.8X2 - Other specified disorders of left ear TSH reflex Free T4 07/27/24 Waylon Chamberlain MD E78.00 - Pure hypercholesterolemia, unspecified, Z00.00 - Encounter for general adult medical examination without abnormal findings Vitamin D 25-OH Total 07/27/24 Waylon Chamberlain MD E55.9 - Vitamin D deficiency, unspecified, Z00.00 - Encounter for general adult medical examination without abnormal findings
[2024-01-25 12:14] VITALS: BP 142/80
== END 2024-01-25 12:03 | disposition home or self-care (01) ==
PROVIDERS: PCP Internal Medicine; Visit Provider Internal Medicine
DX: R97.20 Elevated prostate specific antigen [PSA] (principal); R09.89 Other specified symptoms and signs involving the circulatory and respiratory systems; H93.8X2 Other specified disorders of left ear; E78.00 Pure hypercholesterolemia, unspecified; R03.0 Elevated blood-pressure reading, without diagnosis of hypertension; F17.200 Nicotine dependence, unspecified, uncomplicated

== ENCOUNTER → 2024-01-25 12:46 | Outpatient (BNV) | payer MEDICARE, SELFPAY | PROVIDERS: PCP Internal Medicine; Visit Provider Internal Medicine Cardiovascular Disease | DX: R09.89 Other specified symptoms and signs involving the circulatory and respiratory systems (principal); I44.4 Left anterior fascicular block; R94.31 Abnormal electrocardiogram [ECG] [EKG] | CPT/HCPCS: 93010 ==

== ENCOUNTER 2024-09-19 08:20 | Outpatient (AMB) | payer MEDICARE, SELFPAY ==
--- NOTE | 2024-09-19 08:34 | A.OFFPC_ITS ---
Vital Signs 09/19/24 08:37 09/19/24 08:56 Height 5 ft 5 in Weight 130 lb 2 oz BMI 21.7 BP 140/70 H 132/74 Blood Pressure Location Lt brachial Lt brachial Position Sitting Sitting Pulse 70 Pulse Source Pulse Oximeter Temp 97.1 F Temp Source Temporal Artery Scan Pulse Oximetry (%) 98 Oxygen Delivery Method Room Air Intake Visit Reasons: annual exam Intake Note: Patient is here today for a physical. 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: Not Required per policy Accompanied by: Self / Same As Patient Allergies No Known Allergies (No Known Allergies*) Allergy (Verified 09/19/24 08:48) Medication List - Last Reconciled 09/19/24 by CARIN Jasso melatonin 10 mg PO BEDTIME PRN multivit with [id number] 400-370 mcg (One-A-Day Men's 50 Plus) 1 tab PO DAILY pravastatin 10 mg PO BEDTIME Tobacco use date assessed: 09/19/24 Fall risk assessment: No Falls in past year Last assessed Fall Risk: 09/19/24 Dental Screening Dental Screen Date: 09/19/24 Did you have a dental visit in the last 12 months?: Yes Did you have a dental problem in the last 6 months where you did not have access to dental care?: No Was dental information given to patient?: Patient has dentist HPI annual exam HPI Details The patient is a 69-year-old male presenting for annual physical Dentist: up to date, on he is going on Monday Eye: Up to date Snellen: Right: Left: Corrected vision: glasses STI screening: Colonoscopy: Reports getting the cologuard to two days ago Flu: He never had this COVID:declines Tdap:declines Diet:regular Exercise: Workouts with and he walks Reports that he has been trying to quit smoking He is smoking like 10-12 cigarettes now He has been smoking since age 20 year old Reports that he has not drink alcohol for 6 years now The patient has a elevated PSA at 11.39 on 07/27/2023. The patient refused to have this rechecked before this annual visit. Reports that he will go get this done as soon as possible. He still does not want to be referred to Urology as yet. [facility] Medical History Smoker Pure hypercholesterolemia Elevated PSA, less than 10 ng/ml Elevated blood-pressure reading without diagnosis of hypertension Surgical History No pertinent past surgical history Family History Father No problems noted. Mother Bone cancer Sister No problems noted. Social History Household Members: Spouse Housing: House Alcohol intake: never Patient Tobacco Use Status: Current everyday Tobacco user Tobacco use type: Cigarette Cigarette Packs Per Day: 0.5 Cigarettes Per Day: 10 e-Cigarette/Vaping Use: Never Used Second Hand Smoke Exposure: Yes service: No Current occupational status: unemployed and retired Cognitive needs: No Hearing needs: No Vision needs: Yes Questionnaire PHQ-9 Over the last 2 weeks, how often have you been bothered by any of the following problems? 1. Little interest or pleasure in doing things: not at all 2. Feeling down, depressed, or hopeless: not at all 3. Trouble falling or staying asleep, or sleeping too much: not at all 4. Feeling tired or having little energy: not at all 5. Poor appetite or overeating: not at all 6. Feeling bad about yourself - or that you are a failure or have let yourself or your family down: not at all 7. Trouble concentrating on things, such as reading the newspaper or watching television: not at all 8. Moving or speaking so slowly that other people could have noticed. Or the opposite - being so fidgety or restless that you have been moving around a lot more than usual: not at all 9. Thoughts that you would be better off or of hurting yourself in some way: not at all Total score: 0 Depression Screening Interpretation: Negative Depression Screening Done: Yes Source: Developed by Drs. Bruno Ugarte, Nicolette Pope, Pietro Hallman and colleagues, with an educational dulce from [employer]. Thrive Questionnaire Date Thrive assessed: 09/19/24 I am a: Patient What is your living situation today?: I have a steady place to live Within the past 12 months, did the food you bought not last and you didn't have the money to get more?: Never true Within the past 12 months, did you worry whether your food would run out before you got money to buy more?: Never true Do you have trouble paying for medicines?: No Do you have trouble getting transportation to medical appointments?: No Do you have trouble paying your heating and electricity bill?: No Do you have trouble taking care of your child, family member or friend?: No Do you have trouble with day-to-day activities such as bathing, preparing meals, shopping, managing finances, etc.?: No Are you currently unemployed and looking for a job?: No Are you interested in more education?: No Please select the resources that you would like help with: None Currently or been in a relationship where the following occur: No concerns reported THRIVE Score: 0 AUDIT C Alcohol Use Questionnaire (AUDIT-C) 1. How often do you have a drink containing alcohol?: Never Total Score: 0 LOYDA-7 AMB Questionnaire LOYDA-7 Date LOYDA - 7 assessed: 09/19/24 Feeling nervous, anxious, or on edge: 0 = Not at all Not being able to stop or control worryin = Not at all Worrying too much about different things: 0 = Not at all Trouble relaxin = Not at all Being so restless that it is hard to sit still: 0 = Not at all Becoming easily annoyed or irritable: 0 = Not at all Feeling afraid as if something awful might happen: 0 = Not at all Total LOYDA-7 score (0-4 normal; 5-9 mild; 10-14 moderate; 15-21 severe): 0 Source: Developed by Drs. Bruno Ugarte, Nicolette Pope, Pietro Hallman and colleagues, with an educational dulce from [employer]. Review of Systems Const Denies headache(s) Eyes Denies loss of vision ENT Denies vertigo, Denies dizziness, Denies headache(s) and Denies sore throat Card Denies chest pain, Denies leg edema and Denies lightheadedness Resp Denies cough, Denies hemoptysis and Denies wheezing GI Denies abdominal pain, Denies melena, Denies constipation, Denies diarrhea and Denies vomiting Denies dysuria, Denies urinary frequency and Denies urinary urgency Musc Denies arthralgias, Denies joint swelling, Denies numbness and Denies tingling Neuro Denies Abnormal speech present, Denies behavioral changes, Denies vertigo, Denies dizziness, Denies headache(s), Denies loss of vision, Denies memory loss, Denies numbness and Denies tingling Psych Denies anxiety, Denies behavioral changes, Denies depression, Denies memory loss and Denies panic attacks Dominic/Lymph Denies easy bleeding and Denies easy bruising Aller/Immun Denies wheezing Physical exam (Primary Care) Vital Signs: Last Vital Signs Temp 97.1 F 09/19/24 08:37 Pulse 70 09/19/24 08:37 BP 132/74 09/19/24 08:56 Pulse Ox 98 09/19/24 08:37 Oxygen Delivery Method Room Air 09/19/24 08:37 BMI result Body Mass Index 21.7 Tobacco/Smoking Status: Tobacco use Status Tobacco use date assessed 09/19/24 09/19/24 08:42 Patient Tobacco Use Status Current everyday Tobacco 09/19/24 08:34 Tobacco use type Cigarette 09/19/24 08:34 e-Cigarette/Vaping Use Never Used 09/19/24 08:34 PHQ-9: PHQ-9 Score PHQ-9: Total score 0 09/19/24 08:42 Depression Screening Interpretation: Negative Thrive Assessment: Date of Thrive Assessment Date Thrive assessed 09/19/24 09/19/24 08:42 Currently or been in a relationship where the following occur: No concerns reported Const General: healthy appearing, no acute distress, alert and awake Nutritional Appearance: well nourished Orientation/consciousness: oriented to person, oriented to place and oriented to time [facility] Ears: TM's normal bilaterally General nose exam: Normal nasal mucous membranes and turbinates present Eyes Conjunctivae: conjunctivae normal Sclerae: sclerae normal Pupils: Equal, round and reactive pupils present Neck Neck: Yes no lymphadenopathy and Yes no JVD Thyroid: Thyroid normal Carotids: no bruits Resp Effort & Inspection: normal respiratory effort and not tachypneic Auscultation: no crackles, no rales, no rhonchi and no wheezes Cardio Rate: regular rate Rhythm: regular rhythm Heart sounds: S1 normal heart sound present, S2 normal heart sound present, no murmurs and normal S1 and S2 GI Palpation (GI): Soft to palpation, nontender, no hepatomegaly and no splenomegaly Auscultation: normal bowel sounds General: Yes no CVA tenderness Back/Spine/Pelvis Back: no CVA tenderness Skin General skin exam: no rashes or lesions noted and dry skin Neuro General: oriented to person, oriented to place and oriented to time Cranial nerves: Yes Equal, round and reactive pupils present Speech: No Abnormal speech present Gait exam (Neuro): Normal gait present Motor exam (neuro): no tremor noted Deep tendon reflexes (DTR's): Right triceps reflex intensity grade: 2+, Left triceps reflex intensity grade: 2+, Rt Biceps (C5, C6): 2+, Left biceps reflex intensity grade: 2+, Right brachioradialis reflex intensity grade: 2+, Left brachioradialis reflex intensity grade: 2+, Right patellar reflex intensity grade: 2+ and Left patellar reflex intensity grade: 2+ Extrem Right upper extremity: full ROM Left upper extremity: full ROM Right lower extremity: full ROM; no edema Left lower extremity: full ROM; no edema Psych Mental Status: mental status grossly normal Speech and movement: Normal speech and movement present Affect: normal affect Attitude: cooperative Thought process: Normal thought process present Coding Level of Care Code Est Pt Prev Care >65y(42939) Diagnoses Annual physical exam Z00.00 Elevated PSA, between 10 and less than 20 ng/ml R97.20 Abnormal sensation of thorax R09.89 Audible heartbeat in left ear H93.8X2 Bruit of left carotid artery R09.89 Laterality: left Pure hypercholesterolemia E78.00 Elevated blood-pressure reading without diagnosis of hypertension R03.0 Smoker F17.200 Time Spent (min) 39 Assessment & Plan Assessment & Plan (1) Annual physical exam: Code(s): Z00.00 - Encounter for general adult medical examination without abnormal findings Category: Medical Plan: Preventative guidelines reviewed with the patient. The patient did not had want to repeat his labs before his yearly visit. So he will be getting this done as soon as possible. The patient reports that he received the Cologuard about 2 days ago and their has been encouraged him to get it done as soon as possible. Explained to the patient that this expires, so it is best to get it done as soon as he can. (2) Elevated PSA, between 10 and less than 20 ng/ml: Code(s): R97.20 - Elevated prostate specific antigen [PSA] Category: Medical Plan: The patient psa elevated 11.39 07/27/23. The refusing to have it rechecked until his next PE The patient was offered an referral to urology but he declined Stating that he is not having any symptoms, but if it continues to increased he will The patient is in today for annual physical; he is going to get his PSA rechecked tomorrow. Reports that he still is not having any symptoms and only goes often if he drinks coffee. Explained to the patient that we are not just worrying about his symptoms, also wants to make sure it is not cancer. (3) Abnormal sensation of thorax: Code(s): R09.89 - Other specified symptoms and signs involving the circulatory and respiratory systems Category: Medical Plan: The reports intermittent shock wave like sensation over his left chest last year EKG last year showed NSR with left axis deviation He is asymptomatic (4) Audible heartbeat in left ear: Code(s): H93.8X2 - Other specified disorders of left ear Category: Medical Plan: The patient reported hearing his heart beat in his left eye intermittently Physical exam was normal, except mild carotid bruit Bilateral carotid US ordered last year, but the patient did no get this done Reports that his symptoms went away two days after and never returned (5) Carotid bruit: Code(s): R09.89 - Other specified symptoms and signs involving the circulatory and respiratory systems Category: Medical Qualifiers: Laterality: left Qualified Code(s): R09.89 - Other specified symptoms and signs involving the circulatory and respiratory systems Plan: Carotid bruit heard on the left side, bilateral carotid ultrasound ordered reports that symptoms went away, so he never got this done Due to the resolution of his symptoms (6) Pure hypercholesterolemia: Code(s): E78.00 - Pure hypercholesterolemia, unspecified Category: Medical Plan: The patient is going to complete labs tomorrow Reinforced low cholesterol diet Continue Pravastatin 10 mg QD (7) Elevated blood-pressure reading without diagnosis of hypertension: Code(s): R03.0 - Elevated blood-pressure reading, without diagnosis of hypertension Category: Medical Plan: Blood pressure 132/74 Reinforced low sodium diet He is reminded to continue monitoring his blood pressure at home regularly We will continue to monitor (8) Smoker: Code(s): F17.200 - Nicotine dependence, unspecified, uncomplicated Category: Social Hx Plan: Patient is again counseled on smoking cessation Reports that he has been cutting down significantly
[2024-09-19 08:37] VITALS: BP 140/70; PULSE 70; TEMP 36.2; O2SAT 98; BMI 21.7
[2024-09-19 08:56] VITALS: BP 132/74
== END 2024-09-19 09:08 | disposition home or self-care (01) ==
LOC: HO.HMCH 08:21
PROVIDERS: PCP Internal Medicine
DX: Z00.00 Encounter for general adult medical examination without abnormal findings (principal); R97.20 Elevated prostate specific antigen [PSA]; R09.89 Other specified symptoms and signs involving the circulatory and respiratory systems; H93.8X2 Other specified disorders of left ear; E78.00 Pure hypercholesterolemia, unspecified; R03.0 Elevated blood-pressure reading, without diagnosis of hypertension; F17.200 Nicotine dependence, unspecified, uncomplicated

== ENCOUNTER → 2024-09-19 08:20 | Outpatient (BNVA) | payer MEDICARE, SELFPAY | PROVIDERS: PCP Internal Medicine | DX: Z00.00 Encounter for general adult medical examination without abnormal findings (principal); R97.20 Elevated prostate specific antigen [PSA]; R09.89 Other specified symptoms and signs involving the circulatory and respiratory systems; E78.00 Pure hypercholesterolemia, unspecified; R03.0 Elevated blood-pressure reading, without diagnosis of hypertension; H93.8X2 Other specified disorders of left ear | CPT/HCPCS: 99397 ==

== ENCOUNTER 2024-09-20 07:03 | Outpatient (REF) | payer MEDICARE, SELFPAY ==
[2024-09-20 07:19] LABS: MANUAL DIFF FLAG NO
[2024-09-20 07:36] LABS: Hematocrit 41.7 % (42.0-52.0); Hemoglobin 14.3 g/dl (14.0-18.0); Imm Gran Abs Auto 0.05 X10*3/uL (0.00-0.03); Imm Gran Pct Auto 0.5 % (0.0-0.4); Lymphocytes Absolute Auto 3.2 X10*3/uL (1.2-4.9); Mean Corpuscular HGB Conc 34.3 g/dl (31.0-36.0); Mean Corpuscular Hemoglobin 31.8 pg (27.0-33.0); Mean Corpuscular Volume 92.7 fL (80.0-98.0); NRBC Abs Auto 0.000 X10*3/uL (0.0-0.012); NRBC Pct Auto 0.0 /100WBC (0.0-0.2); Platelet Count 203 X10*3/uL (160-400); Red Blood Count 4.50 X10*6/uL (4.60-5.80); White Blood Count 10.8 X10*3/uL (4.8-10.8)
[2024-09-20 08:19] LABS: Prostate Specific Antigen 12.35 ng/mL (<0.05-4.0)
[2024-09-20 08:26] LABS: Alanine Aminotransferase 24 U/L (0-40); Albumin Level 4.6 g/dL (3.5-5.0); Alkaline Phosphatase 49 U/L (39-117); Anion Gap 12 (12-20); Aspartate Amino Transferase 27 U/L (5-37); Blood Urea Nitrogen 18 mg/dL (9-16); Calcium 8.9 mg/dL (8.4-10.2); Carbon Dioxide 24 mmol/L (22-29); Chloride 111 mmol/L (96-108); Cholesterol 177 mg/dL (<200); Estimated Glomerular Filt Rate > 60; HDL Cholesterol 37 mg/dL (>40); Potassium 4.5 mmol/L (3.3-5.1); Sodium 142 mmol/L (135-145); Total Protein 7.4 g/dL (6.5-8.0); Triglycerides 148 mg/dL (<150)
== END 2024-09-20 07:04 | disposition home or self-care (01) ==
LOC: HO.LAB 07:03
PROVIDERS: PCP Internal Medicine; Visit Provider Internal Medicine
DX: Z00.00 Encounter for general adult medical examination without abnormal findings (principal); N40.0 Benign prostatic hyperplasia without lower urinary tract symptoms; R97.20 Elevated prostate specific antigen [PSA]; E78.00 Pure hypercholesterolemia, unspecified; E55.9 Vitamin D deficiency, unspecified; D64.9 Anemia, unspecified
CPT/HCPCS: 36415; 80053; 80061; 82306; 84153; 84443; 85025